=== PATIENT | male | born 1980 | race Asian ===

== ENCOUNTER 2025-07-15 20:15 | Inpatient (IN) ==
--- NOTE | 2025-07-15 21:18 | Emergency Department Note ---
Impression & Plan Vertigo Admission ED Provider Note HPI: History obtained from the Patient and the patient's friend at the bedside. The patient is a 44-year-old gentleman with no stated past medical history, presents to the emergency department today with a chief complaint of acute onset episode of dizziness. Patient states this happened about 1-1/2 hours prior to arrival.Patient states that it felt as if the room was spinning and he became acutely nauseous. Patient denies any headache, he states he did have some chest discomfort at that time as well. Patient denies any current chest discomfort. On arrival here to the ED the patient is hypertensive but otherwise hemodynamically stable, he is saturating well on room air on arrival, patient is afebrile on arrival. ROS: - Per HPI Differential Diagnosis: Peripheral vertigo, central vertigo/posterior circulation stroke, dehydration/acute kidney injury, arrhythmia, ACS,, amongst other potential pathologies. *Outpatient medications and allergy history reviewed. PE: General: Alert HEENT: Normocephalic, trachea midline Eyes: Extraocular eye movement is intact, no scleral erythema Pulmonary: Clear to auscultation bilaterally, no wheezing Cardio: Regular rate and rhythm GI: Abdomen is soft to palpation : No suprapubic tenderness MSK: No evidence of trauma or malformation of the extremities, no edema Skin: No evidence of rash Neuro: Alert, no focal deficits, no ataxia on [id number] testing bilaterally Psychiatric: Cooperative INDEPENDENT INTERPRETATIONS: environmental monitoring specialist: (As interpreted by myself): - An order was placed for continuous cardiac monitoring - Patient was noted to be in sinus rhythm with a rate of 95 EKG: (As interpreted by myself): Rate: 104 Rhythm: Sinus tachycardia Intervals: Within normal limits ST changes: No ST elevation Time: 2025 Chest x-ray: (As interpreted by myself): Mild pulmonary vascular congestion pattern Interventions provided in ED: - Meclizine, IV fluid bolus, IV Zofran, IV hydralazine, IV potassium chloride Medical Decision Making: IV was established and lab work obtained, patient was placed on residential monitor. Lab work shows a mild leukocytosis at 13.45, hemoglobin is stable at 15.5, platelet count is normal, CMP shows a potassium of 2.8, otherwise no critical findings are noted, troponin is negative x 1. EKG per my interpretation shows sinus rhythm with a rate of 104. CT angiography of the head and neck were obtained, there is no evidence of any acute stroke or intracranial hemorrhage. Chest x-ray does not show any evidence of acute disease. On my reassessment the patient states he is feeling improved, ambulatory trial was attempted however the patient had a recurrence of his symptoms and stated he felt too dizzy to ambulate and his nausea returned. Given this, I did discuss admission with the patient and he was in agreement. Case was discussed with the on-call hospitalist, Dr. Kaba, patient will be admitted for further management and workup of vertigo symptoms. Consultants/Discussions held with other healthcare providers: - Hospitalist, Dr. Kaba Disposition discussion held by myself with: - Patient and patient's friend at the bedside Diagnosis: 1. Vertigo, acute, nonspecific 2. Hypokalemia, acute Disposition: Admission Trent Cook DO Emergency Medicine Past Med/Surg History Problem List (Updated 07/16/25 @ 02:09 by Trent Cook DO) Vertigo (Acute) Social History Smoking Status: Current every day smoker Preferred Language: Armenian Feels Safe at Home: Yes Allergies Allergies Allergy/AdvReac Type Severity Reaction Status Date / Time No Known Allergies Allergy Verified 07/15/25 21:45 Home Meds Home Medications Medication Instructions Recorded Confirmed No Known Home Medications 07/15/25 07/15/25 Results & Data (ED) Vital Signs Vital Signs - 24 hr 07/15/25 20:18 07/15/25 20:23 07/15/25 20:23 Temperature 36.3 C L Temperature Source Temporal Artery Scan Pulse Rate 109 H Pulse Rate [Apical] Pulse Rhythm [Apical] Pulse Strength [Apical] Respiratory Rate 16 Respiratory Effort / Characteristics Non-Labored Spontaneous Respiratory Depth Normal Respiratory Pattern Regular Blood Pressure 183/102 H Blood Pressure [Right Arm] Blood Pressure Mean 129 Blood Pressure Mean [Right Arm] Blood Pressure Position [Right Arm] Pulse Oximetry 96 97 97 Oxygen Delivery Method Room Air Room Air Sepsis Recent Fever Within 48 Hours No Sepsis New/Unexplained Change in Mental Status No Sepsis Action Taken by Nursing No Action Required 07/15/25 20:23 07/15/25 20:42 07/15/25 20:57 Temperature Temperature Source Pulse Rate 104 H Pulse Rate [Apical] 98 H Pulse Rhythm [Apical] Regular Pulse Strength [Apical] Normal Respiratory Rate 17 Respiratory Effort / Characteristics Non-Labored Respiratory Depth Normal Respiratory Pattern Regular Blood Pressure Blood Pressure [Right Arm] 176/123 H Blood Pressure Mean Blood Pressure Mean [Right Arm] 140 Blood Pressure Position [Right Arm] Sitting Pulse Oximetry 97 98 Oxygen Delivery Method Room Air Room Air Sepsis Recent Fever Within 48 Hours Sepsis New/Unexplained Change in Mental Status Sepsis Action Taken by Nursing 07/15/25 22:16 07/16/25 00:00 07/16/25 00:39 Temperature Temperature Source Pulse Rate 100 H Pulse Rate [Apical] 91 H 93 H Pulse Rhythm [Apical] Regular Regular Pulse Strength [Apical] Normal Normal Respiratory Rate 17 16 Respiratory Effort / Characteristics Non-Labored Non-Labored Respiratory Depth Normal Normal Respiratory Pattern Regular Regular Blood Pressure Blood Pressure [Right Arm] 171/118 H 172/118 H Blood Pressure Mean Blood Pressure Mean [Right Arm] 135 136 Blood Pressure Position [Right Arm] Sitting Sitting Pulse Oximetry 98 97 Oxygen Delivery Method Room Air Room Air Sepsis Recent Fever Within 48 Hours Sepsis New/Unexplained Change in Mental Status Sepsis Action Taken by Nursing 07/16/25 01:10 Temperature Temperature Source Pulse Rate Pulse Rate [Apical] Pulse Rhythm [Apical] Pulse Strength [Apical] Respiratory Rate Respiratory Effort / Characteristics Respiratory Depth Respiratory Pattern Blood Pressure 166/113 H Blood Pressure [Right Arm] Blood Pressure Mean 131 Blood Pressure Mean [Right Arm] Blood Pressure Position [Right Arm] Pulse Oximetry Oxygen Delivery Method Sepsis Recent Fever Within 48 Hours Sepsis New/Unexplained Change in Mental Status Sepsis Action Taken by Nursing Laboratory Data 07/15/25 20:30 07/15/25 20:30 Lab Results 07/15/25 Range/Units 20:30 WBC 13.45 H (4.8-10.8) K/ul RBC 5.35 (4.70-6.10) M/uL Hgb 15.5 (14.0-18.0) g/dl Hct 46.6 (42.0-52.0) % MCV 87.1 (80.0-100.0) fL MCH 29.0 (25.0-34.0) pg MCHC 33.3 (32.0-36.0) g/dL RDW Std Deviation 40.5 (36.4-46.3) fL RDW Coeff of Mehrdad 12.8 (11.5-14.5) % Plt Count 296 (130-400) K/uL MPV 10.3 (9.4-12.4) fL Immature Gran % (Auto) 1.6 % Neut % (Auto) 56.8 % Lymph % (Auto) 32.1 % [place] % (Auto) 6.3 % Eos % (Auto) 2.5 % Baso % (Auto) 0.7 % Neut # (Auto) 7.62 H (1.40-6.50) K/uL Lymph # (Auto) 4.32 H (1.20-3.40) K/uL [place] # (Auto) 0.85 H (0.11-0.59) K/uL Eos # (Auto) 0.34 (0.00-0.50) K/uL Baso # (Auto) 0.10 (0.00-0.20) K/uL Immature Gran # (Auto) 0.22 H (0.01-0.20) K/uL PT 10.3 (9.0-12.0) Seconds INR 0.9 (0.9-1.1) APTT 23 (21-31) Seconds PTT Ratio 0.9 Sodium 141 (136-145) mmol/L Potassium 2.8 L (3.5-5.1) mmol/L Chloride 101 (98-107) mmol/L Carbon Dioxide 29 (21-32) mmol/L Anion Gap 11 (3-11) BUN 13 (6-23) mg/dl Creatinine 1.11 (0.6-1.4) mg/dl Est Cr Clr Drug Dosing 79.5 ml/min eGFR 83.45 BUN/Creatinine Ratio 11.7 (10-20) Glucose 139 H (70-99(Fasting)) mg/dl Calcium 9.2 (8.6-10.3) mg/dl Total Bilirubin 1.1 H (0.2-1.0) mg/dl AST 39 (13-39) U/L ALT 69 H (7-52) U/L Alkaline Phosphatase 71 (34-104) U/L Troponin I High Sens 7.5 (0-20) pg/ml Total Protein 7.7 (6.0-8.3) gm/dl Albumin 4.6 (3.4-5.0) gm/dl Globulin 3.1 (2.5-4.0) gm/dl Albumin/Globulin Ratio 1.5 (0.9-2) Administered Medications Discontinued Medications Hydralazine HCl (Hydralazine Hcl 20 Mg/Ml Vial) 10 mg IV NOW STA Stop: 07/16/25 01:02 Last Admin: 07/16/25 01:06 Dose: 10 mg Documented By: JOHN Sodium Chloride (Nss) 1,000 mls @ 999 mls/hr IV .Q1H1M ONE Stop: 07/15/25 22:16 Last Infusion: 07/16/25 00:39 Dose: Infused Documented By: Admin: 07/15/25 21:43 Dose: 999 mls/hr Documented By: JOHN Potassium Chloride (K Gbison / Wtr) 10 meq in 100 mls @ 100 mls/hr IV Q1H CELINA Stop: 07/15/25 23:59 Last Infusion: 07/16/25 00:38 Dose: Infused Documented By: Admin: 07/15/25 23:26 Dose: 100 mls/hr Documented By: Infusion: 07/15/25 23:00 Dose: Infused Documented By: Admin: 07/15/25 22:00 Dose: 100 mls/hr Documented By: JOHN Ioversol (Optiray 320 125ml) 118 ml IV ONCE ONE Stop: 07/15/25 22:21 Last Admin: 07/15/25 22:21 Dose: 118 ml Documented By: TINY Meclizine HCl (Meclizine Hcl 25 Mg Tab) 25 mg PO NOW STA Stop: 07/15/25 21:17 Last Admin: 07/15/25 22:06 Dose: 25 mg Documented By: JOHN Ondansetron HCl (Ondansetron Inj 2 Mg/Ml 2 Ml Vial) 4 mg IV NOW STA Stop: 07/15/25 21:52 Last Admin: 07/15/25 21:59 Dose: 4 mg Documented By: JOHN Imaging Data Radiologist's Impression: Chest X-Ray 07/15/25 20:23 Exam(s): XR CXR 1 VIEW EXAM: XR Chest, 1 View CLINICAL HISTORY: Reason for exam: Chest pain, nonspecific. TECHNIQUE: Frontal view of the chest. COMPARISON: No relevant prior studies available. FINDINGS: Lungs: Pulmonary vascular congestion. No consolidation. Pleural space: Unremarkable. No pneumothorax. Heart: Unremarkable. No cardiomegaly. Mediastinum: Unremarkable. Normal mediastinal contour. Bones/joints: Unremarkable. No acute fracture. IMPRESSION: Pulmonary vascular congestion. No pleural effusion or consolidation. Electronically signed by: Mary Carmen Davis MD 07/15/25 23:35 PM Head CTA 07/15/25 21:16 Exam(s): CTA HEAD W/WO Contrast IV Amt: 119ml EXAM: CT Angiography Head Without and With Intravenous Contrast CLINICAL HISTORY: Reason for exam: dizzy. TECHNIQUE: Axial computed tomographic angiography images of the head without and with intravenous contrast. CTDI is 11.57 mGy and DLP is 1158.89 mGy-cm. Automated exposure control was utilized for the study. A dose lowering technique was utilized adhering to the principles of ALARA. MIP reconstructed images were created and reviewed. CONTRAST: Patient received 119ml of IV contrast COMPARISON: No relevant prior studies available. FINDINGS: VASCULATURE: The dural venous sinuses are patent. Right internal carotid artery: No acute findings. Intracranial segment is patent with no significant stenosis. No aneurysm. Right anterior cerebral artery: Unremarkable. No occlusion or significant stenosis. No aneurysm. Right middle cerebral artery: Unremarkable. No occlusion or significant stenosis. No aneurysm. Right posterior cerebral artery: Unremarkable. No occlusion or significant stenosis. No aneurysm. Right vertebral artery: Unremarkable as visualized. Left internal carotid artery: No acute findings. Intracranial segment is patent with no significant stenosis. No aneurysm. Left anterior cerebral artery: Unremarkable. No occlusion or significant stenosis. No aneurysm. Left middle cerebral artery: Unremarkable. No occlusion or significant stenosis. No aneurysm. Left posterior cerebral artery: Unremarkable. No occlusion or significant stenosis. No aneurysm. Left vertebral artery: Unremarkable as visualized. Basilar artery: Unremarkable. No occlusion or significant stenosis. No aneurysm. HEAD: Brain: No acute findings. No hemorrhage. No edema. Normal enhancement. Ventricles: Unremarkable. No ventriculomegaly. Bones/joints: No acute fracture. Soft tissues: Unremarkable. Sinuses: Chronic maxillary and ethmoid sinusitis. No acute sinusitis. Mastoid air cells: Unremarkable as visualized. No mastoid effusion. IMPRESSION: Negative CT angiogram of the head. Electronically signed by: Mary Carmen Davis MD 07/16/25 00:22 AM Neck CTA 07/15/25 21:16 Exam(s): CTA NECK With Contrast IV Amt: 115ml EXAM: CT Angiography Neck With Intravenous Contrast CLINICAL HISTORY: Reason for exam: dizzy. TECHNIQUE: Routine carotid CT angiography protocol was performed with intravenous contrast. NASCET criteria using the distal ICAs for comparison were used for evaluation of stenoses. CTDI is 11.57 mGy and DLP is 1158.89 mGy-cm. Automated exposure control was utilized for the study. A dose lowering technique was utilized adhering to the principles of ALARA. MIP reconstructed images were created and reviewed. CONTRAST: Patient received 115ml of IV contrast COMPARISON: None. FINDINGS: VASCULATURE: Right common carotid artery: Unremarkable. No occlusion or significant stenosis. No dissection. Right internal carotid artery: Unremarkable. Extracranial segment is patent with no occlusion or significant stenosis. No dissection. Right external carotid artery: Unremarkable. No occlusion. Right vertebral artery: Unremarkable. No occlusion or significant stenosis. No dissection. Left common carotid artery: Unremarkable. No occlusion or significant stenosis. No dissection. Left internal carotid artery: Unremarkable. Extracranial segment is patent with no occlusion or significant stenosis. No dissection. Left external carotid artery: Unremarkable. No occlusion. Left vertebral artery: Unremarkable. No occlusion or significant stenosis. No dissection. NECK: Bones/joints: Periapical abscess around tooth #18. Recommend dental consult. No acute fracture. Soft tissues: Prominent cervical lymph nodes. Lung apices: Clear. CAROTID STENOSIS REFERENCE USING NASCET CRITERIA: % ICA stenosis = (1 - narrowest ICA diameter/diameter of distal cervical ICA) x 100. Mild - <50% stenosis. Moderate - 50-69% stenosis. Severe - 70-94% stenosis. Near occlusion - 95-99% stenosis. Occluded - 100% stenosis. IMPRESSION: Negative CTA neck. Electronically signed by: Mary Carmen Davis MD 07/16/25 00:25 AM Discharge Plan Visit Data Chief Complaint: Cardiac Assessment Stated Complaint: MINOR CHEST PAIN, VOMITING, HEADACHE 1 HR AGO ED Provider: Trent Cook Discharge Problem: Vertigo Patient Disposition: Admitted As Inpatient Condition: Fair Forms Stand Alone Forms: [employer] Prescriptions Prescriptions: No Action No Known Home Medications Referrals Referrals: PCP,NO [Primary Care Provider] -
[2025-07-15 21:23] LABS: Hematocrit (blood only) 46.6 % (42.0-52.0); Hemoglobin 15.5 g/dl (14.0-18.0); Immature Granulocytes # (auto) 0.22 K/uL (0.01-0.20); Immature Granulocytes % (auto) 1.6 %; Mean Corpuscular Hemoglobin 29.0 pg (25.0-34.0); Mean Corpuscular Volume 87.1 fL (80.0-100.0); Platelet Count 296 K/uL (130-400); RDW Standard Deviation 40.5 fL (36.4-46.3); Red Blood Count 5.35 M/uL (4.70-6.10); White Blood Count 13.45 K/ul (4.8-10.8)
[2025-07-15 21:35] LABS: Alanine Aminotransferase 69.0 U/L (7-52); Albumin Globulin Ratio 1.5 (0.9-2); Alkaline Phosphatase 71.0 U/L (34-104); Anion Gap 11.0 (3-11); Bilirubin,Total 1.1 mg/dl (0.2-1.0); Blood Urea Nitrogen 13.0 mg/dl (6-23); Calcium 9.2 mg/dl (8.6-10.3); Carbon Dioxide 29.0 mmol/L (21-32); Chloride 101.0 mmol/L (98-107); Creatinine Clr Calc Pharmacy 79.5 ml/min; Globulin 3.1 gm/dl (2.5-4.0); Glucose 139.0 mg/dl (70-99(Fasting)); Potassium 2.8 mmol/L (3.5-5.1); Sodium 141.0 mmol/L (136-145); Total Protein 7.7 gm/dl (6.0-8.3)
[2025-07-15] MEDS: MECLIZINE HCL 25 MG TAB PO STA (21:41)
[2025-07-15] MEDS: SODIUM CHLORIDE 0.9% 1,000 ML IV ONE (21:43)
[2025-07-15 21:48] LABS: INR 0.9 (0.9-1.1); Partial Thromboplastin Time 23 Seconds (21-31); Prothrombin Time 10.3 Seconds (9.0-12.0)
[2025-07-15] MEDS: ONDANSETRON INJ 2 MG/ML 2 ML VIAL IV STA (21:59)
[2025-07-15] MEDS: POTASSIUM CHLORIDE / WTR 10 MEQ/100 ML PLCT IV SCH (22:00)
[2025-07-15] MEDS: OPTIRAY 320 125ml IV ONE (22:21)
--- NOTE | 2025-07-15 23:36 | XRay Report ---
Exam(s): XR CXR 1 VIEW EXAM: XR Chest, 1 View CLINICAL HISTORY: Reason for exam: Chest pain, nonspecific. TECHNIQUE: Frontal view of the chest. COMPARISON: No relevant prior studies available. FINDINGS: Lungs: Pulmonary vascular congestion. No consolidation. Pleural space: Unremarkable. No pneumothorax. Heart: Unremarkable. No cardiomegaly. Mediastinum: Unremarkable. Normal mediastinal contour. Bones/joints: Unremarkable. No acute fracture. IMPRESSION: Pulmonary vascular congestion. No pleural effusion or consolidation. Electronically signed by: Mary Carmen Davis MD 07/15/25 23:35 PM
--- NOTE | 2025-07-16 00:23 | CT Scan Report ---
Exam(s): CTA HEAD W/WO Contrast IV Amt: 119ml EXAM: CT Angiography Head Without and With Intravenous Contrast CLINICAL HISTORY: Reason for exam: dizzy. TECHNIQUE: Axial computed tomographic angiography images of the head without and with intravenous contrast. CTDI is 11.57 mGy and DLP is 1158.89 mGy-cm. Automated exposure control was utilized for the study. A dose lowering technique was utilized adhering to the principles of ALARA. MIP reconstructed images were created and reviewed. CONTRAST: Patient received 119ml of IV contrast COMPARISON: No relevant prior studies available. FINDINGS: VASCULATURE: The dural venous sinuses are patent. Right internal carotid artery: No acute findings. Intracranial segment is patent with no significant stenosis. No aneurysm. Right anterior cerebral artery: Unremarkable. No occlusion or significant stenosis. No aneurysm. Right middle cerebral artery: Unremarkable. No occlusion or significant stenosis. No aneurysm. Right posterior cerebral artery: Unremarkable. No occlusion or significant stenosis. No aneurysm. Right vertebral artery: Unremarkable as visualized. Left internal carotid artery: No acute findings. Intracranial segment is patent with no significant stenosis. No aneurysm. Left anterior cerebral artery: Unremarkable. No occlusion or significant stenosis. No aneurysm. Left middle cerebral artery: Unremarkable. No occlusion or significant stenosis. No aneurysm. Left posterior cerebral artery: Unremarkable. No occlusion or significant stenosis. No aneurysm. Left vertebral artery: Unremarkable as visualized. Basilar artery: Unremarkable. No occlusion or significant stenosis. No aneurysm. HEAD: Brain: No acute findings. No hemorrhage. No edema. Normal enhancement. Ventricles: Unremarkable. No ventriculomegaly. Bones/joints: No acute fracture. Soft tissues: Unremarkable. Sinuses: Chronic maxillary and ethmoid sinusitis. No acute sinusitis. Mastoid air cells: Unremarkable as visualized. No mastoid effusion. IMPRESSION: Negative CT angiogram of the head. Electronically signed by: Mary Carmen Davis MD 07/16/25 00:22 AM
--- NOTE | 2025-07-16 00:26 | CT Scan Report ---
Exam(s): CTA NECK With Contrast IV Amt: 115ml EXAM: CT Angiography Neck With Intravenous Contrast CLINICAL HISTORY: Reason for exam: dizzy. TECHNIQUE: Routine carotid CT angiography protocol was performed with intravenous contrast. NASCET criteria using the distal ICAs for comparison were used for evaluation of stenoses. CTDI is 11.57 mGy and DLP is 1158.89 mGy-cm. Automated exposure control was utilized for the study. A dose lowering technique was utilized adhering to the principles of ALARA. MIP reconstructed images were created and reviewed. CONTRAST: Patient received 115ml of IV contrast COMPARISON: None. FINDINGS: VASCULATURE: Right common carotid artery: Unremarkable. No occlusion or significant stenosis. No dissection. Right internal carotid artery: Unremarkable. Extracranial segment is patent with no occlusion or significant stenosis. No dissection. Right external carotid artery: Unremarkable. No occlusion. Right vertebral artery: Unremarkable. No occlusion or significant stenosis. No dissection. Left common carotid artery: Unremarkable. No occlusion or significant stenosis. No dissection. Left internal carotid artery: Unremarkable. Extracranial segment is patent with no occlusion or significant stenosis. No dissection. Left external carotid artery: Unremarkable. No occlusion. Left vertebral artery: Unremarkable. No occlusion or significant stenosis. No dissection. NECK: Bones/joints: Periapical abscess around tooth #18. Recommend dental consult. No acute fracture. Soft tissues: Prominent cervical lymph nodes. Lung apices: Clear. CAROTID STENOSIS REFERENCE USING NASCET CRITERIA: % ICA stenosis = (1 - narrowest ICA diameter/diameter of distal cervical ICA) x 100. Mild - <50% stenosis. Moderate - 50-69% stenosis. Severe - 70-94% stenosis. Near occlusion - 95-99% stenosis. Occluded - 100% stenosis. IMPRESSION: Negative CTA neck. Electronically signed by: Mary Carmen Davis MD 07/16/25 00:25 AM
--- NOTE | 2025-07-16 02:11 | History & Physical Report ---
Date of Service July 16, 2025 Assessment & Plan (1) Dizziness: Plan: 44-year-old male Pryde[place] speaking does not have a family doctor comes because of dizziness, nausea, vomiting and imbalance. Friend is in the room who is helping with the translation. Around 7:30 PM patient suddenly felt dizzy and was nauseous and vomiting and was having difficulty ambulating. Vision was very blurry. Mild chest discomfort. Denies any shortness of breath. No cough. No fevers. No runny nose. Mild sore throat from vomiting. No earaches. No abdominal pain. Normal bowel and bladder movements. CTA head and neck unremarkable in the ER. Patient states symptoms improved but if he moves his head dizziness coming back. He is not sure if he can ambulate. Blood pressure is elevated in the ER. Patient states his blood pressure was high in the past when his roommate was smoking marijuana. When he changed the room his blood pressure improved and he thinks currently his blood pressure is around 140/90.ER gave meclizine but he vomited it. Dizziness Nausea/ vomiting Imbalance CTA head and neck unremarkable Will follow MRI scan Meclizine as needed IV Zofran as needed N.p.o. Gentle fluids Telemetry Neurology consult in a.m. Mild chest discomfort EKG and troponin okay Will follow serial enzymes and echo Telemetry Cardiology consult in a.m. Elevated blood pressure IV labetalol as needed Will follow echo If persistent elevation will start on antihypertensives Will also check lipid profile Hypokalemia Potassium 2.8 Will replace Follow repeat labs Leukocytosis WBC 13 Will for repeat labs Tobacco abuse counselling DVT prophylaxis SCDs for now Disposition Telemetry Full code. History of Present Illness Chief Complaint: Dizziness, imbalance and nausea vomiting Primary Care Provider: NO PCP 44-year-old male Pryde[place] speaking does not have a family doctor comes because of dizziness, nausea, vomiting and imbalance. Friend is in the room who is helping with the translation. Around 7:30 PM patient suddenly felt dizzy and was nauseous and vomiting and was having difficulty ambulating. Vision was very blurry. Mild chest discomfort. Denies any shortness of breath. No cough. No fevers. No runny nose. Mild sore throat from vomiting. No earaches. No abdominal pain. Normal bowel and bladder movements. CTA head and neck unremarkable in the ER. Patient states symptoms improved but if he moves his head dizziness coming back. He is not sure if he can ambulate. Blood pressure is elevated in the ER. Patient states his blood pressure was high in the past when his roommate was smoking marijuana. When he changed the room his blood pressure improved and he thinks currently his blood pressure is around 140/90.ER gave meclizine but he vomited it. Past medical history. Possible high blood pressure. Past surgical history. Minor nasal surgery many years ago. Social history. Smokes 10 cigarettes daily for many years. Denies alcohol use. Denies drug use. Family history. Denies any significant family history. Allergies Allergy/AdvReac Type Severity Reaction Status Date / Time No Known Allergies Allergy Verified 07/15/25 21:45 Home Medications Medication Instructions Recorded Confirmed Type No Known Home Medications 07/15/25 07/15/25 History Past Med/Surg History Problem List (Updated 07/16/25 @ 02:16 by Uri Kaba MD) Dizziness Vertigo (Acute) Social History Smoking Status: Current every day smoker Hx Alcohol Use: No Hx Substance Use: No Preferred Language: [email or web address] [place] Hand Filer Balance Wheel Required: Yes Current Living Situation: Alone Feels Safe at Home: Yes Assistive Devices: None Review of Systems Review of Systems: All systems reviewed & are unremarkable except as noted in HPI & below Physical Exam Physical Exam: General- Not in distress Head- atraumatic Eyes- PERRL, no nystagmus ENT- oropharynx clear Neck- supple, no JVD. Lungs- clear to auscultation no wheezing or crackles Heart- regular rate and rhythm; no murmur, no gallop. Abdomen- normal bowel sounds, soft, nontender, no distension Extremities- no pretibial edema, no erythema seen Neuro- alert, oriented; PERRL, no facial palsy; no dysarthria; motor 5/5 bilate rally; no pronator drift, finger nose test ok, co ordination o movements ok, sensations intact, position sense intact Skin- warm & dry Results & Data Results & Data Vital Signs (Past 12 Hours) Vital Signs Temp Pulse Pulse Resp BP BP Pulse Ox 07/16/25 01:10 166/113 H 07/16/25 00:39 100 H 07/16/25 00:00 93 H 16 172/118 H 97 07/15/25 22:16 91 H 17 171/118 H 98 07/15/25 20:57 98 H 17 176/123 H 98 07/15/25 20:42 104 H 07/15/25 20:23 97 07/15/25 20:23 97 07/15/25 20:23 97 07/15/25 20:18 36.3 C L 109 H 16 183/102 H 96 O2 Del Method 07/16/25 01:10 07/16/25 00:39 07/16/25 00:00 Room Air 07/15/25 22:16 Room Air 07/15/25 20:57 Room Air 07/15/25 20:42 07/15/25 20:23 Room Air 07/15/25 20:23 07/15/25 20:23 Room Air 07/15/25 20:18 Room Air Diagnostic Findings Laboratory Results WBC 13.45 K/ul (4.8-10.8) H 07/15/25 20:30 RBC 5.35 M/uL (4.70-6.10) 07/15/25 20:30 Hgb 15.5 g/dl (14.0-18.0) 07/15/25 20:30 Hct 46.6 % (42.0-52.0) 07/15/25 20:30 MCV 87.1 fL (80.0-100.0) 07/15/25 20:30 MCH 29.0 pg (25.0-34.0) 07/15/25 20:30 MCHC 33.3 g/dL (32.0-36.0) 07/15/25 20:30 RDW Std Deviation 40.5 fL (36.4-46.3) 07/15/25 20:30 RDW Coeff of Mehrdad 12.8 % (11.5-14.5) 07/15/25 20:30 Plt Count 296 K/uL (130-400) 07/15/25 20:30 MPV 10.3 fL (9.4-12.4) 07/15/25 20:30 Immature Gran % (Auto) 1.6 % 07/15/25 20:30 Neut % (Auto) 56.8 % 07/15/25 20:30 Lymph % (Auto) 32.1 % 07/15/25 20:30 [place] % (Auto) 6.3 % 07/15/25 20:30 Eos % (Auto) 2.5 % 07/15/25 20:30 Baso % (Auto) 0.7 % 07/15/25 20:30 Neut # (Auto) 7.62 K/uL (1.40-6.50) H 07/15/25 20:30 Lymph # (Auto) 4.32 K/uL (1.20-3.40) H 07/15/25 20:30 [place] # (Auto) 0.85 K/uL (0.11-0.59) H 07/15/25 20:30 Eos # (Auto) 0.34 K/uL (0.00-0.50) 07/15/25 20:30 Baso # (Auto) 0.10 K/uL (0.00-0.20) 07/15/25 20:30 Immature Gran # (Auto) 0.22 K/uL (0.01-0.20) H 07/15/25 20:30 PT 10.3 Seconds (9.0-12.0) 07/15/25 20:30 INR 0.9 (0.9-1.1) 07/15/25 20:30 APTT 23 Seconds (21-31) 07/15/25 20:30 PTT Ratio 0.9 07/15/25 20:30 Sodium 141 mmol/L (136-145) 07/15/25 20:30 Potassium 2.8 mmol/L (3.5-5.1) L 07/15/25 20:30 Chloride 101 mmol/L (98-107) 07/15/25 20:30 Carbon Dioxide 29 mmol/L (21-32) 07/15/25 20:30 Anion Gap 11 (3-11) 07/15/25 20:30 BUN 13 mg/dl (6-23) 07/15/25 20:30 Creatinine 1.11 mg/dl (0.6-1.4) 07/15/25 20:30 Est Cr Clr Drug Dosing 79.5 ml/min 07/15/25 20:30 eGFR 83.45 07/15/25 20:30 BUN/Creatinine Ratio 11.7 (10-20) 07/15/25 20:30 Glucose 139 mg/dl (70-99(Fasting)) H 07/15/25 20:30 Calcium 9.2 mg/dl (8.6-10.3) 07/15/25 20:30 Total Bilirubin 1.1 mg/dl (0.2-1.0) H 07/15/25 20:30 AST 39 U/L (13-39) 07/15/25 20:30 ALT 69 U/L (7-52) H 07/15/25 20:30 Alkaline Phosphatase 71 U/L (34-104) 07/15/25 20:30 Troponin I High Sens 7.5 pg/ml (0-20) 07/15/25 20:30 Total Protein 7.7 gm/dl (6.0-8.3) 07/15/25 20:30 Albumin 4.6 gm/dl (3.4-5.0) 07/15/25 20:30 Globulin 3.1 gm/dl (2.5-4.0) 07/15/25 20:30 Albumin/Globulin Ratio 1.5 (0.9-2) 07/15/25 20:30 Impressions Chest X-Ray 07/15/25 20:23 Exam(s): XR CXR 1 VIEW EXAM: XR Chest, 1 View CLINICAL HISTORY: Reason for exam: Chest pain, nonspecific. TECHNIQUE: Frontal view of the chest. COMPARISON: No relevant prior studies available. FINDINGS: Lungs: Pulmonary vascular congestion. No consolidation. Pleural space: Unremarkable. No pneumothorax. Heart: Unremarkable. No cardiomegaly. Mediastinum: Unremarkable. Normal mediastinal contour. Bones/joints: Unremarkable. No acute fracture. IMPRESSION: Pulmonary vascular congestion. No pleural effusion or consolidation. Electronically signed by: Mary Carmen Davis MD 07/15/25 23:35 PM Head CTA 07/15/25 21:16 Exam(s): CTA HEAD W/WO Contrast IV Amt: 119ml EXAM: CT Angiography Head Without and With Intravenous Contrast CLINICAL HISTORY: Reason for exam: dizzy. TECHNIQUE: Axial computed tomographic angiography images of the head without and with intravenous contrast. CTDI is 11.57 mGy and DLP is 1158.89 mGy-cm. Automated exposure control was utilized for the study. A dose lowering technique was utilized adhering to the principles of ALARA. MIP reconstructed images were created and reviewed. CONTRAST: Patient received 119ml of IV contrast COMPARISON: No relevant prior studies available. FINDINGS: VASCULATURE: The dural venous sinuses are patent. Right internal carotid artery: No acute findings. Intracranial segment is patent with no significant stenosis. No aneurysm. Right anterior cerebral artery: Unremarkable. No occlusion or significant stenosis. No aneurysm. Right middle cerebral artery: Unremarkable. No occlusion or significant stenosis. No aneurysm. Right posterior cerebral artery: Unremarkable. No occlusion or significant stenosis. No aneurysm. Right vertebral artery: Unremarkable as visualized. Left internal carotid artery: No acute findings. Intracranial segment is patent with no significant stenosis. No aneurysm. Left anterior cerebral artery: Unremarkable. No occlusion or significant stenosis. No aneurysm. Left middle cerebral artery: Unremarkable. No occlusion or significant stenosis. No aneurysm. Left posterior cerebral artery: Unremarkable. No occlusion or significant stenosis. No aneurysm. Left vertebral artery: Unremarkable as visualized. Basilar artery: Unremarkable. No occlusion or significant stenosis. No aneurysm. HEAD: Brain: No acute findings. No hemorrhage. No edema. Normal enhancement. Ventricles: Unremarkable. No ventriculomegaly. Bones/joints: No acute fracture. Soft tissues: Unremarkable. Sinuses: Chronic maxillary and ethmoid sinusitis. No acute sinusitis. Mastoid air cells: Unremarkable as visualized. No mastoid effusion. IMPRESSION: Negative CT angiogram of the head. Electronically signed by: Mary Carmen Davis MD 07/16/25 00:22 AM Neck CTA 07/15/25 21:16 Exam(s): CTA NECK With Contrast IV Amt: 115ml EXAM: CT Angiography Neck With Intravenous Contrast CLINICAL HISTORY: Reason for exam: dizzy. TECHNIQUE: Routine carotid CT angiography protocol was performed with intravenous contrast. NASCET criteria using the distal ICAs for comparison were used for evaluation of stenoses. CTDI is 11.57 mGy and DLP is 1158.89 mGy-cm. Automated exposure control was utilized for the study. A dose lowering technique was utilized adhering to the principles of ALARA. MIP reconstructed images were created and reviewed. CONTRAST: Patient received 115ml of IV contrast COMPARISON: None. FINDINGS: VASCULATURE: Right common carotid artery: Unremarkable. No occlusion or significant stenosis. No dissection. Right internal carotid artery: Unremarkable. Extracranial segment is patent with no occlusion or significant stenosis. No dissection. Right external carotid artery: Unremarkable. No occlusion. Right vertebral artery: Unremarkable. No occlusion or significant stenosis. No dissection. Left common carotid artery: Unremarkable. No occlusion or significant stenosis. No dissection. Left internal carotid artery: Unremarkable. Extracranial segment is patent with no occlusion or significant stenosis. No dissection. Left external carotid artery: Unremarkable. No occlusion. Left vertebral artery: Unremarkable. No occlusion or significant stenosis. No dissection. NECK: Bones/joints: Periapical abscess around tooth #18. Recommend dental consult. No acute fracture. Soft tissues: Prominent cervical lymph nodes. Lung apices: Clear. CAROTID STENOSIS REFERENCE USING NASCET CRITERIA: % ICA stenosis = (1 - narrowest ICA diameter/diameter of distal cervical ICA) x 100. Mild - <50% stenosis. Moderate - 50-69% stenosis. Severe - 70-94% stenosis. Near occlusion - 95-99% stenosis. Occluded - 100% stenosis. IMPRESSION: Negative CTA neck. Electronically signed by: Mary Carmen Davis MD 07/16/25 00:25 AM ECG Additional Comments: ECG. Sinus tach rate of 104. Left axis deviation. QTc 473. No acute ST changes seen. Code Status & VTE Plan VTE Prophylaxis Plan VTE Prophylaxis will be ordered: Yes
[2025-07-16] MEDS: POTASSIUM CHLORIDE / WTR 10 MEQ/100 ML PLCT IV SCH (02:20)
[2025-07-16] MEDS ORDERED: LABETALOL HCL IV 5 MG/ML 20ML IV PRN (02:39)
[2025-07-16] MEDS ORDERED: ONDANSETRON INJ 2 MG/ML 2 ML VIAL IV PRN (02:39)
[2025-07-16] MEDS: SODIUM CHLORIDE 0.9% 1,000 ML IV SCH (04:57)
[2025-07-16 06:39] LABS: Hematocrit (blood only) 43.0 % (42.0-52.0); Hemoglobin 14.4 g/dl (14.0-18.0); Immature Granulocytes # (auto) 0.06 K/uL (0.01-0.20); Immature Granulocytes % (auto) 0.4 %; Mean Corpuscular Hemoglobin 28.8 pg (25.0-34.0); Mean Corpuscular Volume 86.0 fL (80.0-100.0); Platelet Count 225 K/uL (130-400); RDW Standard Deviation 40.4 fL (36.4-46.3); Red Blood Count 5.00 M/uL (4.70-6.10); White Blood Count 16.15 K/ul (4.8-10.8)
[2025-07-16 07:12] LABS: Anion Gap 6.0 (3-11); Blood Urea Nitrogen 12.0 mg/dl (6-23); Calcium 8.5 mg/dl (8.6-10.3); Carbon Dioxide 28.0 mmol/L (21-32); Chloride 103.0 mmol/L (98-107); Cholesterol 230.0 mg/dl (0-200); Creatinine Clr Calc Pharmacy 116.0 ml/min; Glucose 162.0 mg/dl (70-99(Fasting)); HDL Cholesterol 34.0 mg/dl; Magnesium 1.8 mg/dl (1.7-2.4); Potassium 4.1 mmol/L (3.5-5.1); Sodium 137.0 mmol/L (136-145); Triglycerides 101.0 mg/dl (0-150)
--- NOTE | 2025-07-16 09:58 | Magnetic Resonance Report ---
MRI OF THE BRAIN COMBO CLINICAL HISTORY: Dizziness. Gait imbalance. COMPARISON STUDY: CT of the brain dated 07/15/2025 TECHNIQUE: MRI of the brain was performed utilizing various T1 and T2-weighted sequences in the axial , sagittal, and coronal planes. Contrast-enhanced sequences were acquired following the administratio n of 7.5 cc of Gadavist. FINDINGS: Brain parenchyma: There are numerous (greater than 10) foci of T2 signal abnormality scattered throug hout the subcortical and periventricular white matter. These measure up to 9 mm. There is no associat ed abnormal postcontrast enhancement. There is no hemorrhage or mass effect. There is no restricted d iffusion to suggest acute ischemia. No enhancing mass lesion is identified on the postcontrast images . [place]-white matter differentiation is preserved. No extra-axial fluid collection is seen. The cerebe llar tonsils are normal in configuration. Ventricles, sulci, and cisterns: Normal in configuration. Pituitary and sella: Unremarkable. Intracranial vasculature: Normal flow voids are maintained at the skull base. Orbits: The bony orbits are grossly intact. There has been banding of the right globe. Orbital conten ts are otherwise grossly normal in appearance. Sinuses and mastoids: There is [id number] mucosal thickening in the left maxillary antrum. Mild mucosal thickening is noted in the ethmoid sinuses. A subcentimeter retention cyst is noted in the r ight sphenoid sinus. The mastoid air cells are clear. Calvarium: Unremarkable. Cervical cord: Partially visualized cervical spinal cord is normal in morphology and signal intensity . IMPRESSION: 1. No acute intracranial abnormality is identified. 2. There are numerous foci of T2 signal abnormality scattered throughout the subcortical and perivent ricular white matter with no associated abnormal postcontrast enhancement. Differential consideration s include age advanced microangiopathic change, a demyelinating process, or less likely an infectious process such as Lyme disease. Clinical and laboratory correlation will be essential. ACT 112: Negative or not required by law. Electronically signed by: Marcus Lay M.D. 07/16/2025 9:56 AM
[2025-07-16 12:27] LABS: Creatine Kinase 57.0 U/L (30-223)
[2025-07-16] MEDS: ATORVASTATIN 40 MG TAB PO SCH (12:38)
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
--- NOTE | 2025-07-16 13:14 | Communication Note ---
Date of Service: July 16, 2025 Seen and examined at bedside. He reports that he still feels dizzy when he looks to the right side. Reports that he feels unsteady on his feet Assessment/plan Constitutional: Awake alert oriented x 3; not in distress. Neck: trachea midline, no thyromegaly normal visual inspection Respiratory: Bilateral vesicular breath sound Cardiovascular: RRR, no murmur, no edema Vessels: no JVD or carotid bruit Chest: normal inspection of chest Abdomen: normal bowel sounds, soft, nontender, no hepatosplenomegaly Musculoskeletal: no cyanosis or clubbing, extremities motor strength 5/5 Skin: no rashes, warm and dry normal turgor Neurologic: PERRL, EOMI, accommodation nl, no face palsy, no dysarthria CN's II- XI intact bilaterally and moves all extremities Psychiatric: A+Ox3, euthymic affect Assessment/plan Dizziness, possible BPPV Hypertensive urgency Hypokalemia Patient presents to the hospital with sudden onset of dizziness associated with nausea vomiting. Found to have elevated blood pressure. CT head, CTA head and neckno acute finding Brain MRI shows numerous foci of T2 signal abnormality scattered throughout the subcortical and periventricular white matter. Started on Lipitor, aspirin Will appreciate neurology input regarding MRI finding PT evaluation Full progress note to follow tomorrow
[2025-07-16] MEDS: ASPIRIN 81 MG ECTAB PO SCH (13:51)
[2025-07-16 15:03] LABS: Amphetamines+Metham, Urine Neg (Neg); MDMA (Ecstacy), Urine Neg (Neg); Marijuana, Urine Neg (Neg)
[2025-07-16] MEDS: LOSARTAN POTASSIUM 50 MG TAB PO SCH (17:23)
[2025-07-16] MEDS: MECLIZINE HCL 25 MG TAB PO PRN (19:47)
[2025-07-17 07:12] VITALS: RESP 18
[2025-07-17 08:29] LABS: Hematocrit (blood only) 45.2 % (42.0-52.0); Hemoglobin 15.4 g/dl (14.0-18.0); Immature Granulocytes # (auto) 0.05 K/uL (0.01-0.20); Immature Granulocytes % (auto) 0.4 %; Mean Corpuscular Hemoglobin 30.0 pg (25.0-34.0); Mean Corpuscular Volume 88.1 fL (80.0-100.0); Platelet Count 253 K/uL (130-400); RDW Standard Deviation 42.8 fL (36.4-46.3); Red Blood Count 5.13 M/uL (4.70-6.10); White Blood Count 13.11 K/ul (4.8-10.8)
[2025-07-17 08:45] LABS: Anion Gap 7.0 (3-11); Blood Urea Nitrogen 15.0 mg/dl (6-23); Calcium 8.7 mg/dl (8.6-10.3); Carbon Dioxide 27.0 mmol/L (21-32); Chloride 106.0 mmol/L (98-107); Creatinine Clr Calc Pharmacy 95.9 ml/min; Glucose 125.0 mg/dl (70-99(Fasting)); Potassium 3.7 mmol/L (3.5-5.1); Sodium 140.0 mmol/L (136-145)
--- NOTE | 2025-07-17 10:19 | Cardiology Progress Note ---
Date of Service July 17, 2025 Assessment & Plan (1) Dizziness: (2) Vertigo: (3) Hypertensive urgency: (4) Elevated white blood cell count, unspecified: Plan Patient is a 44 year old male admitted to [facility] with severe dizziness associated with nausea and vomiting. Symptoms reproduced with movement of the head to the right, suggestive of underlying vertigo vs other neurologic process.. Head and neck CTA were unremarkable. Brain MRI with abnormal T2 signals throughout. Etiology uncertain. Recommend neurology evaluation. Appreciate recommendations. Patient received several doses of meclizine with improvement. -started on ASA and statin as well Found to have elevated WBC on arrival at 13, increasing to 16 yesterday, then 13. Tox screen negative Lyme testing negative. Hypertensive on arrival -started on losartan 50 mg daily -BP improved this morning -Echo with normal LVEF, no valvular disease -EKG without ischemic changes -HS troponin negative x3 Dyslipidemia - LDL 176 -agree with initiation of statin There are significant social and legal issues at home and in his life, which he believes may be contributing. Hospitalist notified. At this time, no further cardiac testing warranted. Recommend continuing losartan and atorvastatin on discharge for risk factor reduction Will sign off. Please contact control panel operator crude unit cardiology provider with additional questions or concerns Case discussed with Dr. Martinez I spent a total of 35 minutes on the date of service in preparation, delivery, and documentation of the care provided to this patient, excluding any time spent in the performance of separately billed services. Pippa Pérez PA-C Department of Cardiology, [facility] This chart was completed in part utilizing Speech Voice Recognition Software. Grammatical errors, random word insertions, pronoun errors, and incomplete sentences are an occasional consequence of this system due to software limitations, ambient noise, and hardware issues. Any formal questions or concerns about the content, text, or information contained within the body of this dictation should be directly addressed to the provider for clarification. Admission and Anticipated Discharge Date Admission Date: July 16, 2025 Supervising Physician Co-Signing Physician Notes I have personally performed a history and physical examination on the patient. I have reviewed the advance practitioner's documentation, and I agree with, and take responsibility for the plan of care. 44-year-old male admitted with dizziness, nausea, vomiting, and associated chest discomfort. Symptoms secondary to vertigo. No evidence of acute coronary syndrome. Normal echocardiogram. No ischemic ECG changes. Chest discomfort has resolved. No dysrhythmia on telemetry. Blood pressure improved. Continue losartan 50 mg daily and atorvastatin. Cardiology will sign off. Please call with additional concerns/questions. Brandon Martinez DO, [facility] I spent a total of 30 minutes on the date of service in preparation, delivery, and documentation of the care provided to this patient, excluding any time spent in the performance of separately billed services. Subjective Patient sitting in bed, resting more comfortably today. Able to move his head slowly without dizziness. Was able to get out of bed slowly this morning and ambulate without assistance. No chest pain or dyspnea. BP improved. Losartan added yesterday and tolerating. Review of Systems Review of Systems: All systems reviewed & are unremarkable except as noted in HPI & below Physical Exam Constitutional: well developed; no acute distress Neck: trachea midline, no thyromegaly Respiratory: normal respiratory effort, lungs clear to auscultation Cardiovascular: RRR, no murmur, no edema Gastrointestinal (Abdomen): normal bowel sounds, soft, nontender, no hepatosplenomegaly Musculoskeletal: no cyanosis or clubbing, extremities motor strength 5/5 Neurologic: PERRL, EOMI, accommodation nl, no face palsy, no dysarthria Psychiatric: A+Ox3, euthymic affect Results & Data Vital Signs (Past 12 Hours) Vital Signs Temp Pulse Pulse Resp BP Pulse Ox O2 Del Method 07/17/25 07:11 36.9 C 79 18 127/84 97 Room Air 07/17/25 04:43 36.6 C 87 17 128/78 96 Room Air 07/17/25 00:49 101 H 07/17/25 00:19 37.1 C 98 H 18 145/88 H 95 Room Air Laboratory Results Cardiac Enzymes 07/16/25 Range/Units 11:55 Troponin I High Sens 4.4 (0-20) pg/ml CBC 07/17/25 Range/Units 07:23 WBC 13.11 H (4.8-10.8) K/ul RBC 5.13 (4.70-6.10) M/uL Hgb 15.4 (14.0-18.0) g/dl Hct 45.2 (42.0-52.0) % Plt Count 253 (130-400) K/uL Neut # (Auto) 8.08 H (1.40-6.50) K/uL Lymph # (Auto) 3.80 H (1.20-3.40) K/uL [place] # (Auto) 0.90 H (0.11-0.59) K/uL Eos # (Auto) 0.21 (0.00-0.50) K/uL Baso # (Auto) 0.07 (0.00-0.20) K/uL Comprehensive Metabolic Panel 07/17/25 Range/Units 07:23 Sodium 140 (136-145) mmol/L Potassium 3.7 (3.5-5.1) mmol/L Chloride 106 (98-107) mmol/L Carbon Dioxide 27 (21-32) mmol/L BUN 15 (6-23) mg/dl Creatinine 0.92 (0.6-1.4) mg/dl Glucose 125 H (70-99(Fasting)) mg/dl Calcium 8.7 (8.6-10.3) mg/dl Intake and Output 07/16/25 07/17/25 07/17/25 22:59 06:59 14:59 Intake Total 580 / 1770 Balance 580 / 1670 Intake: IV 580 / 1570 Sodium Chloride 0.9% 1,000 ml @ 580 / 1470 100 mls/hr IV .Q10H [facility] Rx#: [id number] Other: # Unmeasured Voids 2 1 Weight 75 kg Diagnostic Findings Telemetry reviewed: NSR in the 70-80's at resting, increasing to 90-120's with activity EKG reviewed today: NSR at 78 bmp no acute ischemic changes No change from prior EKG Medications Administered Current Inpatient Medications Aspirin (Aspirin 81 Mg Ectab) 81 mg PO DAILY [facility] Stop: 08/15/25 13:14 Last Admin: 07/17/25 09:26 Dose: 81 mg Atorvastatin Calcium (Atorvastatin 40 Mg Tab) 80 mg PO QAM [facility] Stop: 08/15/25 11:29 Last Admin: 07/17/25 09:25 Dose: 80 mg Labetalol HCl (Labetalol Hcl Iv 5 Mg/Ml 20ml) 10 mg IV Q4H PRN PRN Reason: Hypertension Stop: 08/15/25 02:38 Losartan Potassium (Losartan Potassium 50 Mg Tab) 50 mg PO QAM [facility] Stop: 08/15/25 16:59 Last Admin: 07/17/25 09:25 Dose: 50 mg Meclizine HCl (Meclizine Hcl 25 Mg Tab) 25 mg PO TID PRN PRN Reason: Dizziness or Vertigo Stop: 08/15/25 02:38 Last Admin: 07/16/25 19:47 Dose: 25 mg Ondansetron HCl (Ondansetron Inj 2 Mg/Ml 2 Ml Vial) 4 mg IV Q6H PRN PRN Reason: Nausea Stop: 08/15/25 02:38 PG Care Time/CCT Total # of Minutes Spent Total Time Spent with Patient: Total time spent is greater than 50% in coordination of care (as documented) at patient's floor/unit and/or counseling patient: 35 minutes Coding Level of Care Code 46484 SUB INP/OBS CARE 3/50MIN Diagnoses Dizziness R42 Vertigo R42 Hypertensive urgency I16.0 Elevated white blood cell count, unspecified D72.829
--- NOTE | 2025-07-17 13:33 | Hospitalist Progress Note ---
Date of Service July 17, 2025 Assessment & Plan (1) Dizziness: Plan: 44-year-old male Kinyar[place] speaking does not have a family doctor comes because of dizziness, nausea, vomiting and imbalance. Dizziness Possible BPPV Hypertensive urgency Hypokalemia Patient presented with acute onset of dizziness, nausea/vomiting CT head, CTA head and neck negative for any acute finding MRI brain did not show any stroke; numerous foci of T2 signal abnormality scattered throughout the subcortical and periventricular white matter with no associated abnormal postcontrast enhancement. Echocardiogram shows normal EF with no significant valvular pathology lyme screen neg Suspect BPPV for patient's symptoms. PT consulted for annabelle maneuver Patient started on losartan with improvement in blood pressure Started on aspirin, statin Neurology consulted for comanagement given the MRI findings Time spent evaluating patient, direct bedside care, chart review, placing orders, interpretation of diagnostic studies, discussion with consultants, patient, and family members, as well as other required patient management activities is 50 minutes Please note the above document was generated using voice recognition software. It may contain grammatical, syntax or spelling errors. Any formal questions or concerns about the content, text or information contained within the body of this dictation should be directly addressed to the provider for clarification Admission and Anticipated Discharge Date Admission Date: July 16, 2025 Subjective Patient seen and examined at bedside. He reports that the dizziness has improved compared to previous day. Blood pressure noted to be improved Review of Systems Review of Systems: All systems reviewed & are unremarkable except as noted in Subjective Physical Exam Physical Exam: General- Not in distress Head- atraumatic Eyes- PERRL, no nystagmus ENT- oropharynx clear Neck- supple, no JVD. Lungs- clear to auscultation no wheezing or crackles Heart- regular rate and rhythm; no murmur, no gallop. Abdomen- normal bowel sounds, soft, nontender, no distension Extremities- no pretibial edema, no erythema seen Neuro- alert, oriented; PERRL, no facial palsy; no dysarthria; motor 5/5 bilaterally; no pronator drift, finger nose test ok, co ordination o movements ok, sensations intact, position sense intact Skin- warm & dry Results & Data Results & Data Vital Signs (Past 12 Hours) Vital Signs Temp Pulse Resp BP Pulse Ox O2 Del Method 07/17/25 11:07 36.7 C 88 18 147/95 H 94 Room Air 07/17/25 07:11 36.9 C 79 18 127/84 97 Room Air 07/17/25 04:43 36.6 C 87 17 128/78 96 Room Air
--- NOTE | 2025-07-17 14:08 | Neurology Consultation ---
Date of Consultation July 17, 2025 Assessment & Plan (1) Benign paroxysmal positional vertigo of right ear: Suspect BPPV affecting the right ear. MRI of the brain showed no acute ischemic infarcts. CTA of the head and neck showed no significant large vessel occlusion. Due to chronic white matter changes related to chronic uncontrolled hypertension. Plan Continue to use meclizine 25 mg 3 times daily. Use Zofran disintegrating tablets for nausea and vomiting. Attempted Mukul's maneuver. Strict control control of his blood pressure. Aspirin 81 mg daily for stroke prevention in addition to statin. PT OT. Telehealth Consultation Telehealth Information Telehealth Information: I performed this visit using a real-time telehealth connection between my lo cation and the patients location ([facility]). After connecting through interactive tele-video, patient was identified by name and date of and/or wristband check.Patient (or authorized healthcare guest services representative) was informed that this was a telemedicine visit and it was being conducted confidentially over secure lines. My office door was closed and no one else was present in the room with me.Patient (or authorized healthcare guest services representative) provided consent to proceed with the visit, expressed an understanding of privacy and security of the telemedicine visit, and gave permission to have a hospital guest services representative in the room in order to assist with the visit and to conduct portions of the visit, as needed. I informed the patient (or authorized healthcare guest services representative) that I reviewed their record and presented the opportunity for them to ask any questions regarding the visit today. The patient agreed to participate. History of Present Illness Reason for Consultation: Vertigo Requesting Physician: Rolf Clements MD Attending Physician: Rolf Clements MD History of Present Illness 44-year-old male patient with PMH of HTN who presents with acute onset of vertiginous symptoms. Describes that at as severe dizziness as if his head is detached from his brain, this lasted few seconds and improved. At onset it was associated with nausea and vomiting, it started on Wednesday afternoon as he with his with his parents. Episodes have gotten less and less since admission. He was noted to be hypertensive on admission. Today he reports that he has been able to get out of the bed and walk without having dizziness. He noticed that the vertiginous symptoms returned whenever he turns his head to the right side. He denies any double vision any numbness or weakness. Denies any recent illnesses or headaches. He reports that his blood pressure has been controlled. 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 Allergies Allergy/AdvReac Type Severity Reaction Status Date / Time No Known Allergies Allergy Verified 07/15/25 21:45 Home Medications Medication Instructions Recorded Confirmed Type No Known Home Medications 07/15/25 07/15/25 History Patient History Social History Smoking Status: Current every day smoker Hx Alcohol Use: No Hx Substance Use: No Preferred Language: Mandarin [place] Communication Tools: IPad Insole Bottom Filler Required: Yes Current Living Situation: Alone Feels Safe at Home: Yes Assistive Devices: None Review of Systems Constitutional: Patient denies weight loss, fever, chills, and night sweats Eyes: Patient denies change in vision, tearing, pain, and redness ENT: Patient denies pain, bleeding, rhinorrhea, and dysphagia Cardiovascular: Patient denies chest pain, palpitation, dyspnea at rest, and dyspnea with exertion Respiratory: Patient denies shortness of breath, cough, wheezing, and productive cough GI: Patient denies reflux, pain, constipation, and diarrhea Skin: Patient denies rash, dryness, and itching Allergies/Immune System: Patient denies rhinorrhea, seasonal allergies, reaction to current MEDS, and joint swelling Endocrine: Patient denies weight loss, weight gain, temperature intolerance, and excessive thirst Neurological: All negative unless mentioned in the HPI Physical Exam General Constitutional: Appearance normally developed Head and face: normocephalic and atraumatic Eyes: no ptosis, no anisocoria, and no dysconjugate gaze Respiratory: normal effort Cardiovascular: regular rhythm and regular rate Abdomen: non distended Skin: no rashes, lesions, or ulcers noted Psychiatric: normal judgement and insight, normal mood, and normal affect NEUROLOGIC EXAMINATION: Mental Status:alert, oriented to time, place, person, normal recent memory, normal remote memory, normal attention span, normal concentration, normal language and normal fund of knowledge Cranial Nerves: CN 2 - no visual defect on confrontation and pupils round, equal, reactive to light CN 3, 4, 6 - extra-ocular movements intact and no nystagmus CN 5 - facial sensation intact CN 7 - no facial asymmetry CN 8 - intact hearing CN 9, 10 - palate symmetric, normal gag CN 11 - good shoulder shrug CN 12 - tongue midline MOTOR: Strength was at least antigravity throughout, Pronator drift was absent and There were no abnormal movements SENSATION: intact and symmetric to pinprick, light touch, vibration and joint position GAIT: stable, no ataxia and can perform tandem walking COORDINATION: no ataxia with finger to nose testing and heel to santizo testing REFLEXES: cannot assess over telemedicine Results & Data Vital Signs (Past 12 Hours) Vital Signs Temp Pulse Resp BP Pulse Ox O2 Del Method 07/17/25 11:07 36.7 C 88 18 147/95 H 94 Room Air 07/17/25 07:11 36.9 C 79 18 127/84 97 Room Air 07/17/25 04:43 36.6 C 87 17 128/78 96 Room Air Laboratory Results Laboratory Results - last 24 hr 07/16/25 07/16/25 07/17/25 11:55 14:00 07:23 WBC 13.11 H RBC 5.13 Hgb 15.4 Hct 45.2 MCV 88.1 MCH 30.0 MCHC 34.1 RDW Std Deviation 42.8 RDW Coeff of Mehrdad 13.2 Plt Count 253 MPV 10.4 Immature Gran % (Auto) 0.4 Neut % (Auto) 61.6 Lymph % (Auto) 29.0 [place] % (Auto) 6.9 Eos % (Auto) 1.6 Baso % (Auto) 0.5 Neut # (Auto) 8.08 H Lymph # (Auto) 3.80 H [place] # (Auto) 0.90 H Eos # (Auto) 0.21 Baso # (Auto) 0.07 Immature Gran # (Auto) 0.05 Sodium 140 Potassium 3.7 Chloride 106 Carbon Dioxide 27 Anion Gap 7 BUN 15 Creatinine 0.92 Est Cr Clr Drug Dosing 95.9 eGFR 104.54 BUN/Creatinine Ratio 16.3 Glucose 125 H Calcium 8.7 Urine Opiates Screen Neg Ur Methadone, Qual Neg Urine Fentanyl Screen Neg Urine Barbiturates Neg Ur Phencyclidine (PCP) Neg U Amphetamin/Meth Scrn Neg MDMA (Ecstasy) Screen Neg U Benzodiazepines Scrn Neg Ur Cocaine Metabolite Neg U Marijuana (THC) Screen Neg Lyme Disease Screen Negative Diagnostic Findings MRI of the brain shows no acute ischemic infarct and shows chronic white matter changes likely related to hypertension. CTA showed no significant atherosclerotic disease no large vessel occlusion. Medications Administered Home Medications Medication Instructions Recorded Confirmed Last Taken No Known Home Medications 07/15/25 07/15/25 Unknown Active Medications Generic Name Dose Route Start Last Admin Trade Name Freq PRN Reason Stop Dose Admin Aspirin 81 mg 07/16/25 13:15 07/17/25 09:26 Aspirin 81 Mg Ectab PO 08/15/25 13:14 81 mg DAILY CELINA Administration Atorvastatin Calcium 80 mg 07/16/25 11:30 07/17/25 09:25 Atorvastatin 40 Mg Tab PO 08/15/25 11:29 80 mg QAM CELINA Administration Losartan Potassium 50 mg 07/16/25 17:00 07/17/25 09:25 Losartan Potassium 50 Mg Tab PO 08/15/25 16:59 50 mg QAM CELINA Administration Meclizine HCl 25 mg 07/16/25 02:39 07/16/25 19:47 Meclizine Hcl 25 Mg Tab PO 08/15/25 02:38 25 mg TID PRN Administration Dizziness or Vertigo
--- NOTE | 2025-07-17 14:25 | Discharge Summary ---
Date of Service July 17, 2025 Admission HPI Per Admitting Provider 44-year-old male Syrian speaking does not have a family doctor comes because of dizziness, nausea, vomiting and imbalance. Friend is in the room who is helping with the translation. Around 7:30 PM patient suddenly felt dizzy and was nauseous and vomiting and was having difficulty ambulating. Vision was very blurry. Mild chest discomfort. Denies any shortness of breath. No cough. No fevers. No runny nose. Mild sore throat from vomiting. No earaches. No abdominal pain. Normal bowel and bladder movements. CTA head and neck unremarkable in the ER. Patient states symptoms improved but if he moves his head dizziness coming back. He is not sure if he can ambulate. Blood pressure is elevated in the ER. Patient states his blood pressure was high in the past when his roommate was smoking marijuana. When he changed the room his blood pressure improved and he thinks currently his blood pressure is around 140/90.ER gave meclizine but he vomited it. Past medical history. Possible high blood pressure. Past surgical history. Minor nasal surgery many years ago. Social history. Smokes 10 cigarettes daily for many years. Denies alcohol use. Denies drug use. Family history. Denies any significant family history. Admission Exam Per Admitting Provider General- Not in distress Head- atraumatic Eyes- PERRL, no nystagmus ENT- oropharynx clear Neck- supple, no JVD. Lungs- clear to auscultation no wheezing or crackles Heart- regular rate and rhythm; no murmur, no gallop. Abdomen- normal bowel sounds, soft, nontender, no distension Extremities- no pretibial edema, no erythema seen Neuro- alert, oriented; PERRL, no facial palsy; no dysarthria; motor 5/5 bilaterally; no pronator drift, finger nose test ok, co ordination o movements ok, sensations intact, position sense intact Skin- warm & dry Principal Diagnosis Dizziness Possible BPPV Hypertensive urgency Hypokalemia Discharge Exam Constitutional: WD/WN, vitals as above, NAD, sitting up in bed, pleasant, conversing easily Respiratory: normal respiratory effort, lungs clear to auscultation, no wheeze, rales, rhonchi. Normal insp/exp effort, no accessory muscle use Cardiovascular: RRR, no murmur, no edema Vessels: no JVD or carotid bruit Chest: normal inspection of chest Abdomen: normal bowel sounds, soft, nontender, no hepatosplenomegaly Musculoskeletal: no cyanosis or clubbing, extremities motor strength 5/5 Skin: no rashes, warm and dry normal turgor Neurologic: PERRL, EOMI, accommodation nl, no face palsy, no dysarthria CN's II- XI intact bilaterally and moves all extremities Psychiatric: A+Ox3, euthymic affect Discharge Data Allergies Allergy/AdvReac Type Severity Reaction Status Date / Time No Known Allergies Allergy Verified 07/15/25 21:45 Consultations 07/16/25 01:01 ED Decision to Admit Stat 07/16/25 08:00 Consult Cardiology Routine 07/16/25 10:48 Consult Neurology Routine Ordered Studies 07/15/25 21:16 CT angio head wo/w Stat CT angio neck with con Stat 07/16/25 02:39 MRI Brain [MR brain wo/w con] Urgent Hospital Course (1) Dizziness: 44-year-old male Syrian speaking does not have a family doctor comes because of dizziness, nausea, vomiting and imbalance. Dizziness Possible BPPV Hypertensive urgency Hypokalemia Patient presented with acute onset of dizziness, nausea/vomiting CT head, CTA head and neck negative for any acute finding MRI brain did not show any stroke; numerous foci of T2 signal abnormality scattered throughout the subcortical and periventricular white matter with no associated abnormal postcontrast enhancement. Echocardiogram shows normal EF with no significant valvular pathology lyme screen neg Patient was admitted to medical floor; was given IV fluids, antihypertensives. He underwent echocardiogram which showed normal heart function. Cardiology and neurology were consulted for comanagement. Cardiology recommended addition of losartan for high blood pressure. Neurology reviewed the MRI findings; the MRI findings are likely secondary to chronic uncontrolled hypertension. Patient was provided prescription for aspirin, Lipitor, losartan and meclizine and was recom mended to follow-up with PCP. Patient's dizziness had resolved at the time of discharge with minimal symptoms. He was evaluated by physical therapy prior to discharge and was walking in the hallways independently. Please note the above document was generated using voice recognition software. It may contain grammatical, syntax or spelling errors. Any formal questions or concerns about the content, text or information contained within the body of this dictation should be directly addressed to the provider for clarification Total Time Total Time Spent Total Time Spent (In Minutes): 45 Total Time Includes: Examination of the Patient, Discharge Planning, Medication Reconciliation, Communication With Other Providers and Other Discharge Plan Discharge Items Patient Disposition: Home - Self-Care Reason For Visit: DIZZINESS, IMBALANCE, ELEVATED BP Discharge Diagnosis: Possible BBPV Hypertensive crisis Condition on Discharge: Fair Activity: Resume your previous activity Non-emergency contact: Primary Care Provider Call non-emergency contact if: you have any medication questions and your symptoms worsen Follow-up/Referrals: PCP,NO [Primary Care Provider] - Diet: Regular Addtl Attending Provider Instructions: You were admitted to the hospital due to dizziness and high blood pressure. You were evaluated by cardiology and neurology during the hospitalization. They recommend following medications; Take aspirin 81 mg once a day Take Lipitor 80 mg once a day Take losartan 50 mg once a day Meclizine 25 mg as needed for dizziness Take Zofran as needed for vomiting You can use [employer] coupon to get these medications from the pharmacy. Please make an appointment with a primary care doctor for follow-up Pending Studies at Discharge: No Stand-Alone Forms: My [employer] [facility] [employer], Smoking Cessation Medications and DC Order Prescriptions: New atorvastatin [Lipitor] 80 mg tablet 80 mg PO DAILY Qty: 30 0RF losartan 50 mg Tablet 50 mg PO QAM Qty: 30 0RF aspirin 81 mg Tablet,Delayed Release (Dr/Ec) 81 mg PO DAILY Qty: 30 0RF meclizine 25 mg Tablet 25 mg PO TID PRN (Reason: dizziness) Qty: 30 0RF ondansetron 4 mg tablet,disintegrating 4 mg PO DAILY Qty: 30 0RF No Action No Known Home Medications Discharge Orders: Discharge Order (Routine); Ordered 07/17/25 Ordered By: Rolf Morris/Other Patient Handouts: Vertigo Inner Ear Problems, Vertigo Staying Safe, BPPV Admission Data Admit Date/Time: 07/16/25 02:08 Attending Provider: Rolf Clements Admit Provider: Uri Kaba Primary Care Provider: PCP,NO Other Providers: Uri Kaba; Teresa Looney; Loi Arriaza Sheldon D; Brandon Martinez; Jeramy Arroyo; Trent Tabares; Sonal Salazar; Pippa Pérez; Kathy English; Cece Avery; Teresa Austin; Jonathan Mata; Phil Newman; Dorothy Puckett; Radha Aponte; Rashmi Ramon; Bubba Carlson; Vicente Munson; Riri Nunez; Lucinda Brown; Henrry Carbone; Adonay Sparks; Alexandre Mehta Other Interventions: Discharge Summary Assessment (RN) Last Done: 07/17/25 14:50
[2025-07-17 15:19] VITALS: BP 165/112; PULSE 93; TEMP 97.2; O2SAT 93
--- NOTE | 2025-07-19 16:19 | Electrocardiogram Report ---
Test Reason : Blood Pressure : */* mmHG Vent. Rate : 78 BPM Atrial Rate : 78 BPM P-R Int : 180 ms QRS Dur : 90 ms QT Int : 396 ms P-R-T Axes : 52 -19 79 degrees QTcB Int : 451 ms Normal sinus rhythm Nonspecific T wave abnormality Abnormal ECG When compared with ECG of 15-Jul-2025 20:26, (unconfirmed) No significant change was found Confirmed by Josh Betancur ([id number]) on 07/19/2025 4:19:03 PM Referred By: REFERRED SELF Confirmed By: Josh Betancur
== END 2025-07-17 17:13 | disposition home or self-care (01) | DRG 305 ==
LOC: ED 20:15 → EDINP 07-16 02:08 → 2S 07-16 02:39